=== PATIENT | female | born 1995 | race Caucasian/White ===

== ENCOUNTER 2018-01-29 21:50 | Emergency (ER) | payer MEDICAID ==
[~2018-01-29] VITALS: Ht 152.4 cm; Wt 72.1 kg
[2018-01-29 21:54] VITALS: BP 115/84
--- NOTE | 2018-01-29 21:57 | NUR ---
TO LOBBY A/W BED, AMB, VSS, ERMD NOTED, NASAL SWAB DONE
--- NOTE | 2018-01-29 22:27 | NUR ---
PT AMBULATED TO BED 5
--- NOTE | 2018-01-29 22:30 | NUR ---
ASSUMED CARE OF PT AT THIS TIME. C/O COUGH/CONGESTION X 2 WEEKS. NO RESPIRATORY DISTRESS NOTED...PT SPEAKS IN FULL SENTENCES. AAOX4 WITH EVEN AND STEADY GAIT; PATIENT STATES PAIN OF 9/10; VSS; PATIENT POSITIONED FOR COMFORT; HOB ELEVATED; BEDRAILS UP X2; BED DOWN. ER MD MADE AWARE OF PT STATUS. WILL CONTINUE TO MONITOR.
[2018-01-29] MEDS ORDERED: ACETAMIN/CODEINE 120/12MG-5ML 5 ML UDC PO ONE (23:30)
--- NOTE | 2018-01-29 23:33 | NUR ---
X-Ray at bedside.
[2018-01-29] MEDS ORDERED: PHENYLEPHRINE 0.5% 15 ML BTL NS ONE (23:50)
[2018-01-30 00:20] VITALS: BP 116/82
--- NOTE | 2018-01-30 00:20 | NUR ---
Patient discharged with v/s stable. Written and verbal after care instructions given and explained. Patient alert, oriented and verbalized understanding of instructions. Ambulatory with steady gait. All questions addressed prior to discharge. ID band removed. Patient advised to follow up with PMD. Rx of SUDAFED AND GUAIATUSSIN given. Patient educated on indication of medication including possible reaction and side effects. Opportunity to ask questions provided and answered.
== END 2018-01-30 00:20 | disposition home or self-care (01) ==
LOC: MED 21:50
DX: J20.9 Acute bronchitis, unspecified (principal)
CPT/HCPCS: 36415; 71045; 81002; 81025; 87804; 99284

== ENCOUNTER 2018-05-28 09:35 | Emergency (ER) | payer MEDICAID ==
[~2018-05-28] VITALS: Ht 152.4 cm; Wt 73.6 kg
[2018-05-28 09:38] VITALS: BP 123/76
--- NOTE | 2018-05-28 09:48 | NUR ---
PT AMB TO BED 3
--- NOTE | 2018-05-28 09:58 | NUR ---
c/o sore throat, cough, n/v/fever x 1 week. Pt reports taking nyquil at home with no relief. LBM 05/27/18. abdomen soft, flat, non tender, bowel sounds present x4. lung sounds clear & equal bilat. Pt denies diarrhea, sob, cp. SKIN IS PINK/WARM/DRY; AAOX4 WITH EVEN AND STEADY GAIT; HR EVEN AND REGULAR;VSS; PATIENT POSITIONED FOR COMFORT; HOB ELEVATED; BEDRAILS UP X1; BED DOWN. ER MD MADE AWARE OF PT STATUS.
--- NOTE | 2018-05-28 09:58 | NUR ---
urine collected from pt
--- NOTE | 2018-05-28 09:59 | NUR ---
ermd at bedside
--- NOTE | 2018-05-28 10:29 | NUR ---
Patient discharged with v/s stable. Written and verbal after care instructions given and explained. Patient alert, oriented and verbalized understanding of instructions. Ambulatory with steady gait. All questions addressed prior to discharge. ID band removed. Patient advised to follow up with PMD. Rx of IBUPROFEN, CODEIN/PROMETHAZINE given. Patient educated on indication of medication including possible reaction and side effects. Opportunity to ask questions provided and answered.
[2018-05-28 10:39] VITALS: BP 121/74
== END 2018-05-28 10:29 | disposition home or self-care (01) ==
LOC: MED 09:35
DX: J06.9 Acute upper respiratory infection, unspecified (principal)
CPT/HCPCS: 81002; 81025; 99283

== ENCOUNTER 2020-02-11 23:09 | Emergency (ER) | payer MEDICAID ==
[~2020-02-11] VITALS: Ht 149.9 cm; Wt 72.6 kg
[2020-02-11 23:28] VITALS: BP 126/72
[2020-02-11 23:31] VITALS: BP 126/72
--- NOTE | 2020-02-12 00:29 | NUR ---
Patient discharged with v/s stable. Written and verbal after care instructions given and explained. Patient alert, oriented and verbalized understanding of instructions. Ambulatory with steady gait. All questions addressed prior to discharge. ID band removed. Patient advised to follow up with PMD. Rx of promethazine,codeine given. Patient educated on indication of medication including possible reaction and side effects. Opportunity to ask questions provided and answered.
== END 2020-02-12 00:29 | disposition home or self-care (01) ==
LOC: MED 23:09
DX: U07.1 COVID-19 (principal)
CPT/HCPCS: 99283